=== PATIENT | female | born 1950 | race Caucasian/White ===

== ENCOUNTER 2018-06-08 07:07 | Day surgery (SDC) | payer OTHER ==
[2018-06-07 12:00] VITALS: BMI 31.8
[~2018-06-08 07:07] MED LIST: EPINEPHrine 0.3 MG, Dextrose 50% 3 ML in Ophthalmic Irrigation Solution 500 ML FS SCH; Fentanyl 100 MCG/2 ML VIAL ONE; Midazolam HCl 2 mg/2 ml Vial ONE
[2018-06-08] MEDS ORDERED: Cyclopentolate 1% Opth Drop 2 ML BOT ONE (07:52)
[2018-06-08] MEDS ORDERED: Phenylephrine 2.5% Ophth Soln 5 ML BOT ONE (07:53)
[2018-06-08] MEDS ORDERED: Insulin Regular 300 UNITS/3 ML VIAL ONE (08:31)
[2018-06-08] MEDS ORDERED: Metoprolol Tartrate 5 MG/5 ML VIAL ONE ×2 (10:22→14:34)
[2018-06-08] MEDS ORDERED: Lidocaine 4% PF 5 ML AMP ONE (14:34)
[2018-06-08] MEDS ORDERED: CEFAZOLIN 1 GM VIAL ONE (14:34)
[2018-06-08] MEDS ORDERED: Maxitrol 0.1% Opth Oint 3.5 GM TUBE ONE (14:34)
[2018-06-08] MEDS ORDERED: Bupivacaine 0.75% 10 ML AMP ONE (14:34)
[2018-06-08] MEDS ORDERED: Triamcinolone 40 MG/ML VIAL ONE (14:34)
[2018-06-08] MEDS ORDERED: Lidocaine 1% PF 5 ML VIAL ONE (14:34)
--- NOTE | 2018-06-08 16:46 | OP ---
DATE OF PROCEDURE: 06/08/2018 PREOPERATIVE DIAGNOSIS: Vitreous hemorrhage, epiretinal membrane, tractional retinal detachment, right eye. POSTOPERATIVE DIAGNOSIS: Vitreous hemorrhage, epiretinal membrane, tractional retinal detachment, right eye. PROCEDURE PERFORMED: Pars plana vitrectomy, membrane peel, right eye. ANESTHESIA: Local with monitored anesthesia care. PROCEDURE IN DETAIL: The patient was identified in the preoperative holding area. Appropriate informed consent for the planned surgical procedure on the right eye had been obtained. The patient was transported to the operative suite, where appropriate cardiopulmonary monitoring was established. Local anesthesia was obtained using retrobulbar block modified Van Nano lid block using 50:50 mixture of 4% lidocaine and 0.75% bupivacaine. The patient was prepped and draped in usual sterile manner for ophthalmic surgery, right eye. Lid speculum was placed in the right eye. A 25-gauge trocar was placed through the conjunctiva and sclera supratemporally, inferotemporally, and supranasally. Infusion line was placed inferotemporally. Light pipe and vitreous cutter were inserted into the eye. Core vitrectomy was performed. Posterior hyaloid face was elevated and membranes were trimmed from the retinal surface. Posterior hyaloid blood was also removed by direct aspiration. Panretinal photocoagulation was placed into all non-macular areas of the retina. No further bleeding was identified. Trocars removed. The eye was noted to retain pressure well. Retrobulbar Kenalog and subconjunctival Ancef were placed. Antibiotic ointment placed and last patched and shielded. The patient was taken to the postop recovery unit in good condition having suffered no immediate perioperative complications. The patient was instructed to patch the shield on avoid lifting or bending, and follow up for Dr. Kendrick Job ID: [id number]
== END 2018-06-08 10:45 | disposition home or self-care (01) ==
LOC: SDC 07:07
PROVIDERS: ATTEND Ophthalmology Retina Specialist
PROC: 085E3ZZ Destruction of Right Retina, Percutaneous Approach (ICD-10-PCS; principal; 2018-06-08)
PROC: 08U03JZ Supplement of Right Eye with Synthetic Substitute, Percutaneous Approach (ICD-10-PCS; principal; 2018-06-08)
PROC: 08B43ZZ Excision of Right Vitreous, Percutaneous Approach (ICD-10-PCS; principal; 2018-06-08)
DX: H43.11 Vitreous hemorrhage, right eye (principal); H35.371 Puckering of macula, right eye; H33.41 Traction detachment of retina, right eye
CPT/HCPCS: 36416; J0171; J1815; J2250; J3010